=== PATIENT | male | born 1970 | race American Indian/Alaskan Native ===

== ENCOUNTER 2018-07-05 02:28 | Emergency (ER) | payer OTHER ==
[2018-07-05 03:09] VITALS: BP 129/78
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
== END 2018-07-05 04:20 | disposition left against medical advice (07) ==
LOC: ED 02:28 → EEVIPCON 02:28 → ED 04:20
DX: S43.401A Unspecified sprain of right shoulder joint, initial encounter (principal); R55 Syncope and collapse; F17.200 Nicotine dependence, unspecified, uncomplicated; X58.XXXA Exposure to other specified factors, initial encounter; Y93.89 Activity, other specified; Y92.89 Other specified places as the place of occurrence of the external cause; Y99.8 Other external cause status
CPT/HCPCS: 99283